=== PATIENT | female | born 1945 | race African-American/Black ===

== ENCOUNTER 2016-08-10 09:42 | Emergency (ER) | payer MEDICARE, OTHER, MEDICAID ==
[~2016-08-10] VITALS: Ht 170.2 cm; Wt 86.0 kg
[~2016-08-10 09:42] MED LIST: ATOR20TA65 PO; DONE5TAB33 PO; FAMO20TA8 PO; FURO-151 PO; LOSA50TA20 PO; METO50TA5 PO; PHEN100C4 PO; POTA20TA82 PO
[2016-08-10] MEDS ORDERED: ASPIRIN 81MG TABLET PO STA (10:27)
[2016-08-10 11:21] LABS: BASOPHILS % 1.1 % (0.0-2.0); EOSINOPHILS % 1.4 % (0.0-5.0); HEMATOCRIT. 40.8 % (36.0-48.0); HEMOGLOBIN. 13.5 g/dL (12.0-16.0); LYMPHOCYTES % 23.8 % (20.0-50.0); MEAN CORPUSCULAR HEMOGLOBIN 30.8 pg (28.0-32.0); MEAN CORPUSCULAR HGB CONC 33.2 g/dL (31.0-37.0); MEAN CORPUSCULAR VOLUME 92.6 fL (81.0-99.0); MONOCYTES % 11.3 % (2.0-8.0); NEUTROPHILS % 62.4 % (40.0-76.0); PLATELET 194 x1000/uL (130-400); RED CELL DISTRIBUTION WIDTH 14.2 % (11.6-14.6); WHITE BLOOD COUNT 4.3 x1000/uL (4.5-11.0)
[2016-08-10 11:37] LABS: ALANINE AMINOTRANSFERASE 23 IU/L (13-61); ALBUMIN 3.4 g/dL (3.4-5.0); ANION GAP 7; CALCIUM 8.8 mg/dL (8.5-10.1); CARBON DIOXIDE 34 mEq/L (21-32); CHLORIDE 103 mEq/L (98-107); INDEX HEMOLYSI 1 (1-3); INDEX ICTERIC 1 (1-4); INDEX LIPEMIC 1 (1-3); NT PRO B-TYPE NATRIURETIC PEP 67 pg/mL (5-125); TROPONIN I < 0.02 ng/mL (0.00-0.04); UREA NITROGEN BLOOD 13 mg/dL (7-21); eGFR > 60 mL/min (>60)
[2016-08-10 12:08] LABS: D-DIMER 10.76 mg/L FEU (<0.50); INR 1.1; PARTIAL THROMBOPLASTIN TIME 26.8 sec (24.0-34.0); PROTHROMBIN TIME 11.9 sec
[2016-08-10 16:15] VITALS: BP 153/68
== END 2016-08-10 16:34 | disposition home or self-care (01) ==
LOC: ER 09:42
DX: R07.9 Chest pain, unspecified (principal); F03.90 Unspecified dementia, unspecified severity, without behavioral disturbance, psychotic disturbance, mood disturbance, and anxiety; E78.00 Pure hypercholesterolemia, unspecified; I10 Essential (primary) hypertension; K21.9 Gastro-esophageal reflux disease without esophagitis; R06.02 Shortness of breath; R79.89 Other specified abnormal findings of blood chemistry; Z79.82 Long term (current) use of aspirin; Z86.718 Personal history of other venous thrombosis and embolism; Z86.73 Personal history of transient ischemic attack (TIA), and cerebral infarction without residual deficits; Z92.29 Personal history of other drug therapy
CPT/HCPCS: 36415; 71010; 80053; 83880; 84484; 85025; 85379; 85610; 85730; 93005; 99285